=== PATIENT | male | born 1955 | race Caucasian/White ===

== ENCOUNTER → 2017-05-24 | Outpatient (REF) | payer OTHER ==
[~2017-05-24] MED LIST: /CELE20CA; FOLIC1; MOTR200T4; REMICADE; VICO5TAB; [UNRECOGNIZED DRUG - CODE]
== END ==
LOC: M LAB REF 17:47
PROVIDERS: ATTEND Surgery
DX: L72.3 Sebaceous cyst (principal)

== ENCOUNTER → 2017-06-14 | Outpatient (CLI) | payer OTHER | LOC: M SMT 10:28 | PROVIDERS: ATTEND Nurse Practitioner Women's Health | DX: N40.0 Benign prostatic hyperplasia without lower urinary tract symptoms (principal) ==

== ENCOUNTER → 2018-02-20 | Outpatient (CLI) | payer OTHER ==
[2018-02-20 17:45] LABS: BASO # 0.1 10^3/uL (0.0-0.2); BASO % 0.9 % (0.0-1.0); EOS # 0.6 10^3/uL (0.0-0.50); EOS % 7.5 % (0.0-3.0); HEMATOCRIT 41.4 % (42.0-52.0); HEMOGLOBIN 14.6 g/dl (13.5-17.5); IMMATURE GRANULOCYTE % 0.4 % (0-3.0); LYMPH # 1.6 10^3/uL (1.5-4.5); LYMPH % 21.7 % (24.0-44.0); MEAN CORPUSCULAR HGB CONC 35.3 g/dl (32.0-36.5); MEAN CORPUSCULAR VOLUME 96.5 fl (80.0-96.0); MONO # 0.7 10^3/uL (0.0-0.8); MONO % 9.8 % (0.0-5.0); NEUTROPHILS # 4.4 10^3/uL (1.8-7.7); NEUTROPHILS % 59.7 % (36.0-66.0); PLATELET COUNT, AUTOMATED 222 10^3/uL (150-450); RED BLOOD COUNT 4.29 10^6/uL (4.30-6.10); RED CELL DISTRIBUTION WIDTH 12.7 % (11.5-14.5); WHITE BLOOD COUNT 7.4 10^3/uL (4.0-10.0)
[2018-02-20 18:11] LABS: ERYTHROCYTE SEDIMENTATION RATE 12 mm/hr (0-20)
[2018-02-20 18:31] LABS: ALBUMIN 4.1 GM/DL (3.2-5.2); ALBUMIN/GLOBULIN RATIO 1.24 (1.00-1.93); ALKALINE PHOSPHATASE 85 U/L (45-117); ALT/SGPT 44 U/L (12-78); ANION GAP 5 MEQ/L (8-16); AST/SGOT 21 U/L (7-37); BILIRUBIN,TOTAL 0.4 MG/DL (0.2-1.0); BLOOD UREA NITROGEN 16 MG/DL (7-18); CALCIUM LEVEL 9.1 MG/DL (8.8-10.2); CARBON DIOXIDE LEVEL 30 MEQ/L (21-32); CHLORIDE LEVEL 108 MEQ/L (98-107); CREATININE FOR GFR 1.24 MG/DL (0.70-1.30); GLOMERULAR FILTRATION RATE > 60.0 (>49); GLUCOSE, FASTING 104 MG/DL (70-100); POTASSIUM SERUM 4.4 MEQ/L (3.5-5.1); SODIUM LEVEL 143 MEQ/L (136-145); TOTAL PROTEIN 7.4 GM/DL (6.4-8.2)
[2018-02-23 00:09] LABS: CYCLIC CITRULLINATED PEPTIDE 127 units (0-19)
[2018-02-23 00:09] LABS: ANTINUCLEAR ANTIBODIES DIRECT Negative (Negative)
== END ==
LOC: M LAB 16:55
DX: M05.79 Rheumatoid arthritis with rheumatoid factor of multiple sites without organ or systems involvement (principal)
CPT/HCPCS: 80053

== ENCOUNTER → 2019-05-03 | Outpatient (CLI) | payer OTHER ==
[~2019-05-03] MED LIST changes: -/CELE20CA; +CELE1CAP4; +CELE1CAP9 PO; +D32000CA PO; +FLOM0.4C39 PO; +FOLI1TAB11 PO; +METH2.5T48 PO; +VESI10TA2 PO
[2019-05-03 13:48] LABS: BASO % 0.6 % (0.0-1.0); EOS # 0.3 10^3/uL (0.0-0.50); EOS % 4.4 % (0.0-3.0); HEMATOCRIT 39.1 % (42.0-52.0); HEMOGLOBIN 13.8 g/dl (13.5-17.5); LYMPH # 1.6 10^3/uL (1.5-4.5); LYMPH % 23.9 % (24.0-44.0); MEAN CORPUSCULAR HEMOGLOBIN 35.2 pg (27.0-33.0); MEAN CORPUSCULAR HGB CONC 35.3 g/dl (32.0-36.5); MEAN CORPUSCULAR VOLUME 99.7 fl (80.0-96.0); MONO # 0.7 10^3/uL (0.0-0.8); MONO % 10.6 % (0.0-5.0); NEUTROPHILS # 4.1 10^3/uL (1.8-7.7); NEUTROPHILS % 60.1 % (36.0-66.0); PLATELET COUNT, AUTOMATED 222 10^3/uL (150-450); RED BLOOD COUNT 3.92 10^6/uL (4.30-6.10); WHITE BLOOD COUNT 6.8 10^3/uL (4.0-10.0)
[2019-05-03 14:10] LABS: ERYTHROCYTE SEDIMENTATION RATE 14 mm/hr (0-20)
[2019-05-03 14:29] LABS: ALBUMIN 3.8 GM/DL (3.2-5.2); ALT/SGPT 35 U/L (12-78); BILIRUBIN,TOTAL 0.4 MG/DL (0.2-1.0); BLOOD UREA NITROGEN 14 MG/DL (7-18); CALCIUM LEVEL 9.2 MG/DL (8.8-10.2); CARBON DIOXIDE LEVEL 27 MEQ/L (21-32); CHLORIDE LEVEL 110 MEQ/L (98-107); CREATININE FOR GFR 1.38 MG/DL (0.70-1.30); GLOMERULAR FILTRATION RATE 55.2 (>49); GLUCOSE, FASTING 88 MG/DL (70-100); RHEUMATOID FACTOR QUANT < 10.0 IU/ML (<15.0); SODIUM LEVEL 142 MEQ/L (136-145); TOTAL PROTEIN 6.7 GM/DL (6.4-8.2)
[2019-05-08 00:07] LABS: CYCLIC CITRULLINATED PEPTIDE 65 units (0-19)
== END ==
LOC: M LAB 12:54
PROVIDERS: ATTEND Nurse Practitioner Family
DX: M05.79 Rheumatoid arthritis with rheumatoid factor of multiple sites without organ or systems involvement (principal); Z79.899 Other long term (current) drug therapy

== ENCOUNTER → 2019-05-08 | Outpatient (CLI) | payer OTHER ==
[2019-05-08 18:52] LABS: APPEARANCE, URINE CLEAR (CLEAR); BACTERIA, URINE AUTO NEGATIVE (NEGATIVE); BILIRUBIN, URINE AUTO NEGATIVE (NEGATIVE); BLOOD, URINE BLOOD 1+ (NEGATIVE); COLOR, URINE YELLOW (YELLOW); GLUCOSE, URINE (UA) AUTO NEGATIVE (NEGATIVE); KETONE, URINE AUTO NEGATIVE (NEGATIVE); LEUKOCYTE ESTERASE, URINE AUTO NEGATIVE (NEGATIVE); NITRITE, URINE AUTO NEGATIVE (NEGATIVE); PROTEIN, URINE AUTO NEGATIVE (NEGATIVE); RBC, URINE AUTO 1 /HPF (0-3); SPECIFIC GRAVITY URINE AUTO 1.013 (1.002-1.035); SQUAMOUS EPITHELIAL CELL UR AU 0 /HPF (0-6); UROBILINOGEN, URINE AUTO 0.2 mg/dL (0.0-2.0); WBC, URINE AUTO 0 /HPF (0-3)
== END ==
LOC: M LAB 16:04
PROVIDERS: ATTEND Nurse Practitioner Women's Health
DX: Z12.5 Encounter for screening for malignant neoplasm of prostate (principal); N32.81 Overactive bladder
CPT/HCPCS: 36415; 81001; 87086; G0103; G0463

== ENCOUNTER → 2019-05-08 | Outpatient (CLI) | payer OTHER | LOC: M LAB 16:11 | PROVIDERS: ATTEND Internal Medicine Rheumatology | DX: M05.79 Rheumatoid arthritis with rheumatoid factor of multiple sites without organ or systems involvement (principal) ==

== ENCOUNTER → 2019-05-13 | Outpatient (CLI) | payer OTHER ==
[2019-05-13 07:43] LABS: BASO % 0.6 % (0.0-1.0); EOS # 0.3 10^3/uL (0.0-0.50); EOS % 4.5 % (0.0-3.0); HEMATOCRIT 38.6 % (42.0-52.0); LYMPH # 1.2 10^3/uL (1.5-4.5); LYMPH % 18.6 % (24.0-44.0); MEAN CORPUSCULAR HGB CONC 36.3 g/dl (32.0-36.5); MEAN CORPUSCULAR VOLUME 99.2 fl (80.0-96.0); MONO # 0.7 10^3/uL (0.0-0.8); MONO % 11.3 % (0.0-5.0); NEUTROPHILS % 64.4 % (36.0-66.0); PLATELET COUNT, AUTOMATED 221 10^3/uL (150-450); RED BLOOD COUNT 3.89 10^6/uL (4.30-6.10); WHITE BLOOD COUNT 6.2 10^3/uL (4.0-10.0)
[2019-05-15 13:51] LABS: %CD19 Negative; %CD20 Negative
== END ==
LOC: M LAB 07:19
PROVIDERS: ATTEND Internal Medicine Rheumatology
DX: M05.79 Rheumatoid arthritis with rheumatoid factor of multiple sites without organ or systems involvement (principal)

== ENCOUNTER → 2019-05-31 | Outpatient (CLI) | payer OTHER ==
[2019-05-31 14:35] LABS: ALBUMIN 3.8 GM/DL (3.2-5.2); ALT/SGPT 34 U/L (12-78); BILIRUBIN,TOTAL 0.4 MG/DL (0.2-1.0); BLOOD UREA NITROGEN 14 MG/DL (7-18); CALCIUM LEVEL 8.8 MG/DL (8.8-10.2); CARBON DIOXIDE LEVEL 26 MEQ/L (21-32); CHLORIDE LEVEL 110 MEQ/L (98-107); CREATININE FOR GFR 1.17 MG/DL (0.70-1.30); GLOMERULAR FILTRATION RATE > 60.0 (>49); GLUCOSE, FASTING 84 MG/DL (70-100); POTASSIUM SERUM 4.3 MEQ/L (3.5-5.1); SODIUM LEVEL 142 MEQ/L (136-145); TOTAL PROTEIN 6.6 GM/DL (6.4-8.2)
== END ==
LOC: M LAB 13:20
PROVIDERS: ATTEND Internal Medicine Rheumatology
DX: Z79.899 Other long term (current) drug therapy (principal)

== ENCOUNTER 2019-08-09 05:33 | Day surgery (SDC) | payer OTHER ==
--- NOTE | 2019-07-30 04:29 | CR ---
DATE OF CONSULTATION: 07/22/2019 PREOPERATIVE CONSULTATION REPORT FOR: Dr. Cool for right foot arthrodesis 08/09/2019. Dear Dr. Cool, Thank you for asking me to see Mr. Avery Wallace in consultation. He is, as you know, a 63-year-old gentleman with a past medical history of hyperlipidemia, rheumatoid arthritis, who has had progressive left foot pain and disability over the last 6 months. Patient reports his rheumatoid arthritis has been stable on Rituxan, methotrexate, Celebrex, but all medicines are on hold, the methotrexate and Celebrex 2 weeks before surgery. The Rituxan, he gets every 6 months and is due for it, but it is on hold per his seam press operator, Dr. Ramirez, at [facility]. Patient reports that despite this, he is working daily at [employer]. He does report the foot pain slows him down but he is physically active, not at a desk job, denying any chest pain, palpitations, syncope, or presyncope. Patient has obstructive sleep apnea (CARROLL), uses continuous positive airway pressure (CPAP) regularly. Patient has non-Hodgkin's lymphoma felt to be caused by one of his rheumatology treatments, is stable, unchanged, and follows with Dr. Bazzi. Patient has prostate disease and is treated with tamsulosin and VESIcare with good results. Follows with urology. Patient otherwise denies any fevers or chills, chest pain or shortness of breath, nausea, vomiting, change in bowels. PAST MEDICAL HISTORY: 1. Hyperlipidemia. 2. Rheumatoid arthritis. 3. Non-Hodgkin's lymphoma secondary to Remicade, inoperable, so being monitored. 4. Benign microhematuria. Follows with urology. 5. Cholecystectomy 2008. 6. Chronic bronchitis. 7. Seasonal allergic rhinitis. 8. Vasectomy 09/17/2009. 9. BPH. Follows with urology. 10. CARROLL. On CPAP. 11. Vitamin D deficiency. MEDICATIONS: - Celebrex 200 mg daily - folic acid 1 mg daily - methotrexate 2.5 mg six tablets weekly - Rituxan infusion every 6 months - tamsulosin 0.4 mg daily - VESIcare 10 mg daily - vitamin D3, 2000 international units daily ALLERGIES: Patient has no known drug allergies. SOCIAL HISTORY: Works in maintenance shop at [employer], , three adult children. Never smoked. Rare alcohol. FAMILY HISTORY: Father from stroke at 62. He had multiple myeloma. Mother from stroke at 82. She had hypertension, coronary artery disease (CAD), osteoarthritis (OA). Brother has CAD. A second brother, hypertension. Sister, pulmonary hypertension, at 62. A second sister, chronic obstructive pulmonary disease (COPD). Grandparents had cardiac disease, kidney disease, and emphysema. PHYSICAL EXAMINATION: Overweight male in no acute distress with weight 240, body mass index (BMI) 34, oxygen saturation after exertion 96%, blood pressure 118/60 with a heart rate of 54. HEENT: Head is normocephalic. Neck is supple. Pupils equal, reactive to light. Extraocular movements are intact. Conjunctivae not injected. Sclerae anicteric. Tympanic membranes slightly dull. He does wear eyeglasses. He has no thyromegaly, jugular venous distention (JVD), or carotid bruits. RESPIRATORY: Clear to auscultation. Resonant to percussion. CARDIOVASCULAR: Regular rate, rhythm. No murmur, rub, or gallop. ABDOMEN: Soft, nontender. No hepatosplenomegaly. EXTREMITIES: He has good peripheral pulses. No significant swelling of his fingers. DERMATOLOGIC: No rashes, bruises. NEUROLOGIC: Alert and oriented. Cranial nerves II-XII are intact. LABORATORY DATA: EKG 07/21/2019: Sinus bradycardia, rate of 54, axis of -15. Normal WV, QRS, QTc interval. Normal R wave progression. No atrial or ventricular hypertrophy. No pathologic Q waves. EKG unchanged from previous EKG except for the bradycardia. Laboratory data 07/12/2019 shows a normal med profile and vitamin D. From 05/31/2019, he had a normal liver panel. From 05/13/2019, he had a normal CBC. IMPRESSION: Mr. Avery Wallace is a 63-year-old gentleman with cardiovascular risk factors positive only for age and hyperlipidemia and has no signs or symptoms indicative of cardiovascular ischemia. Patient is felt to be optimized and at low risk for cardiovascular complications, which can be further minimized by the following: PROBLEMS: 1. Rheumatoid arthritis. Methotrexate, Rituxan, and Celebrex already on hold 2 weeks before surgical intervention. Resume per seam press operator and orthopedic surgeon postoperatively. 2. Non-Hodgkin's lymphoma. No specific treatment. Being monitored by hematology/oncology. 3. BPH. I have approved him taking tamsulosin morning of surgery. He takes VESIcare later in the day. 4. Obstructive sleep apnea. I have encouraged him to bring CPAP with him to surgery. 5. Vitamin D deficiency. Hold vitamin D morning of surgery. 6. Hyperlipidemia. Continue dietary, exercise modification. He is on no specific pharmacologic therapy. Thank you very much for this consultation. Please call with questions or concerns.
--- NOTE | 2019-08-01 15:30 | HPE ---
DATE OF ANTICIPATED ADMISSION: 08/09/2019 CHIEF COMPLAINT: Left foot pain. HISTORY OF PRESENT ILLNESS: Avery Wallace is a 63-year-old male with rheumatoid arthritis who has had longstanding pain due to arthritis in the hindfoot. He has failed conservative measures and presents for elective double arthrodesis. PHYSICAL EXAMINATION: General: Well appearing, alert and oriented, in no acute distress. Pulmonary: Regular nonlabored breathing. Cardiovascular: Regular rate and rhythm. Musculoskeletal: Left foot there is tenderness along the talonavicular and subtalar joints. Very significant stiffness with minimal inversion, eversion. Intact dorsiflexion and plantar flexion. Normal sensation to light touch of the superficial peroneal, deep peroneal, tibial, and sural nerve distributions. Foot is warm and well perfused. HOME MEDICATIONS: - Celebrex - folic acid - methotrexate - oxycodone - Tamsulosin - VESIcare - vitamin D PAST MEDICAL HISTORY: 1. Rheumatoid arthritis 2. History of lymphoma. SOCIAL HISTORY: Patient does not smoke. He works at [employer]. He is and lives with his . IMAGING: Radiographs of the left foot and ankle showed osteoarthritis of the hindfoot. Relative neutral alignment of the foot. IMPRESSION: Left hindfoot arthritis. PLAN: Patient would like to proceed with double arthrodesis. Risks and benefits of surgery were discussed with the patient in detail and include but are not limited to infection, damage to nerves and blood vessels, continued pain and stiffness, need for additional procedures. Informed consent was obtained in the office. He will likely need to spend one night following surgery. LUCAS
[~2019-08-09] VITALS: Ht 180.3 cm; Wt 108.3 kg
[2019-08-09] VITALS (7 sets, daily range): BP systolic 124–153; BP diastolic 62–82
[~2019-08-09 05:33] MED LIST changes: +RITU10VLL IV
[2019-08-09] MEDS ORDERED: MIDAZOLAM INJ 2 MG/2 ML VIAL (J2250) IV SCH (06:00)
[2019-08-09] MEDS ORDERED: LR 1,000 ML IV ONE (06:00)
[2019-08-09] MEDS ORDERED: fentaNYL 100 MCG/2 ML INJECTION (J3010) IV SCH (06:00)
[2019-08-09] MEDS ORDERED: ceFAZolin SOD 2 GM in IV 1 EA IV ONE (06:00)
[2019-08-09] MEDS ORDERED: MIDAZOLAM INJ 2 MG/2 ML VIAL (J2250) As Ordered ONE (07:08)
[2019-08-09] MEDS ORDERED: fentaNYL 100 MCG/2 ML INJECTION (J3010) As Ordered ONE ×3 (07:08→09:11)
[2019-08-09] MEDS ORDERED: PROPOFOL 200 MG/20 ML VIAL As Ordered ONE (07:13)
[2019-08-09] MEDS ORDERED: ROCURONIUM BROMIDE 50 MG/5 ML VIAL As Ordered ONE ×2 (07:13→09:05)
[2019-08-09] MEDS ORDERED: LIDOCAINE 2% INJ 100 MG/5 ML SDV (FOR ANES.) As Ordered ONE (07:13)
[2019-08-09] MEDS ORDERED: dexameTHASONE 4 MG/ML 1ML VIAL (J1100) As Ordered ONE (07:14)
[2019-08-09] MEDS ORDERED: LACRILUBE (AKWA TEARS) OPHTH OINT 3.5 GM As Ordered ONE (07:14)
[2019-08-09] MEDS ORDERED: ONDANSETRON 4MG/2ML VIAL (J2405) As Ordered ONE (07:14)
[2019-08-09] MEDS ORDERED: KETAMINE HCL 200 MG/20 ML VIAL As Ordered ONE ×2 (08:04→14:58)
[2019-08-09] MEDS ORDERED: SUGAMMADEX SODIUM 500 MG/5 ML VIAL (BRIDION) As Ordered ONE (09:05)
[2019-08-09] MEDS ORDERED: ACETAMINOPHEN 1000MG 100ML IV BTL (OFIRMEV) (J0131 PER 10MG) As Ordered ONE (09:09)
[2019-08-09] MEDS ORDERED: LABETALOL HCL 100 MG/20 ML VIAL As Ordered ONE (09:21)
[2019-08-09] MEDS ORDERED: LIDOCAINE 2% MDV 20 ML VIAL ONE (09:53)
[2019-08-09] MEDS ORDERED: ROPIvacaine 0.5% 30 ML INJECTION (J2795 PER 1MG) ONE (09:53)
[2019-08-09] MEDS ORDERED: DESFLURANE 240 ML INHALANT As Ordered ONE (10:01)
[2019-08-09] MEDS ORDERED: BUPIVACAINE HCL 0.5% 30 ML VIAL As Ordered ONE (11:29)
[2019-08-09] MEDS ORDERED: fentaNYL 100 MCG/2 ML INJECTION (J3010) IV PRN (12:45)
[2019-08-09] MEDS ORDERED: LR 1,000 ML IV SCH (12:45)
[2019-08-09] MEDS ORDERED: PERCOCET 5MG/325MG TAB PO PRN (12:45)
[2019-08-09] MEDS ORDERED: ONDANSETRON 4MG/2ML VIAL (J2405) IV PRN (12:45)
[2019-08-09] MEDS ORDERED: HYDROMORPHONE HCL 0.5 MG/ 0.5 ML SYRINGE (J1170 PER 1) IV PRN (12:45)
[2019-08-09] MEDS ORDERED: METOCLOPRAMIDE INJ 10MG/2ML VIAL (J2765) As Ordered ONE (12:48)
[2019-08-09] MEDS ORDERED: METOCLOPRAMIDE INJ 10MG/2ML VIAL (J2765) IV ONE (13:00)
--- NOTE | 2019-08-09 13:20 | REP ---
C-ARM VIEWS LEFT ANKLE AND FOOT: Multiple C-arm views of the left ankle and foot performed during placement of multiple metallic screws. The osseous structures are well aligned. There are two screws bridging the talus and calcaneus. There are four screws fusing the talus and navicular with dorsal cerclage wiring. Osseous structures are well aligned. 2 minutes 50 seconds fluoroscopy time utilized. Electronically Signed by Rancho Bentley MD 08/10/2019 11:10 A
[2019-08-09] MEDS ORDERED: FLEET ENEMA PR PRN (13:46)
[2019-08-09] MEDS ORDERED: MORPHINE 4 MG/ML 1ML VIAL/SYRINGE (J2270) IV PRN (13:46)
[2019-08-09] MEDS: LR 1,000 ML IV SCH (13:46)
[2019-08-09] MEDS ORDERED: ACETAMINOPHEN 500 MG TAB PO SCH (14:00)
[2019-08-09] MEDS ORDERED: oxyCODONE 5MG TAB PO PRN ×2 (14:15)
[2019-08-09] MEDS: ceFAZolin SOD 2 GM in IV 1 EA IV SCH (15:51)
[2019-08-09] MEDS: ACETAMINOPHEN 500 MG TAB PO SCH (21:04)
[2019-08-10] MEDS: ceFAZolin SOD 2 GM in IV 1 EA IV SCH (00:04)
[2019-08-10] MEDS: LR 1,000 ML IV SCH (01:53)
[2019-08-10 02:00] VITALS: BP 109/60
[2019-08-10] MEDS: ACETAMINOPHEN 500 MG TAB PO SCH (05:48)
[2019-08-10 06:00] VITALS: BP 113/60
[2019-08-10] MEDS ORDERED: OXYC-517 PO (06:15)
[2019-08-10] MEDS ORDERED: XARE10TA PO ×2 (06:15→07:11)
[2019-08-10] MEDS ORDERED: RIVAROXABAN 10 MG TAB (XARELTO) PO SCH (18:00)
--- NOTE | 2019-08-13 10:31 | DSES ---
DATE OF ADMISSION: 08/09/2019 DATE OF DISCHARGE: 08/10/2019 ADMISSION DIAGNOSIS: Left hind foot arthritis. OTHER DIAGNOSES: Rheumatoid arthritis, history of lymphoma. DISCHARGE DIAGNOSIS: Left hind foot arthritis status post double arthrodesis with a left proximal tibial bone graft. OPERATION PERFORMED: Double arthrodesis with the use of a left proximal tibial bone graft. HISTORY: This is a 63-year-old male patient with progressively worsening left ankle pain and stiffness. He failed to improve with conservative management. He was admitted for elective left ankle double arthrodesis with use left proximal tibial bone graft grafting. HOSPITAL COURSE: The patient was admitted on day of surgery underwent the above listed procedure. It was well tolerated by the patient and without complications. On day of discharge he was doing well, non-weightbearing on his left lower extremity and follow up in our office in 7-10 days for surgical followup. He will use oral pain medications for pain control. He will resume his preoperative medications and diet. He will use Xarelto 10 mg per their protocol for DVT prophylaxis. He was given instructions to include but not limited to wound monitoring and activity limitations. Please refer the medical record further details. LUCAS
--- NOTE | 2019-08-19 08:05 | RO ---
DATE OF PROCEDURE: 08/09/2019 PREOPERATIVE DIAGNOSIS: Left hindfoot arthritis. POSTOPERATIVE DIAGNOSIS: Left hindfoot arthritis. PROCEDURE: Left double arthrodesis and proximal tibial bone graft. SURGEON: Kari Cool MD FINANCE ADMINISTRATOR: JEAN Madrid ANESTHESIA: General endotracheal, popliteal block. ESTIMATED BLOOD LOSS: 200 mL. COMPLICATIONS: None. CONDITION: Stable to recovery. INDICATIONS: Avery Wallace is a 63-year-old male with advanced arthritis of his hindfoot due to rheumatoid arthritis. He has failed conservative measures. Patient elects for double arthrodesis and proximal tibial bone graft. Risks and benefits of surgery were discussed with the patient in detail and include, but are not limited to, infection, damage to nerves and blood vessels, continued pain and stiffness, need for additional procedures. Informed consent was obtained in the office. DESCRIPTION OF PROCEDURE: The patient was met in the preoperative holding area where his left lower extremity was marked as the correct operative side. He underwent a popliteal nerve block by anesthesia. He was then taken to the operating room where he underwent general anesthesia. A Brock catheter was placed and removed at the end of the case by nursing. A well-padded tourniquet was applied to the left upper thigh. Chlorhexidine scrub was provided to the left lower leg as well. He was then prepped and draped in a normal sterile fashion. Antibiotics were given within 60 minutes prior to incision. An official time-out was held where the correct patient, operative side, and operative procedure were verified. At this point, incision was marked out over standard sinus tarsi approach laterally and medially over the talonavicular joint. An Esmarch was used to exsanguinate the leg, and tourniquet was inflated to 250 mmHg. Incision was made laterally, and sinus tarsi approach was utilized to gain access to the subtalar joint. There was moderate to severe arthritis throughout the joint and a significant amount of sclerotic bone. Cartilage was thoroughly debrided using a series of curved [place] osteotomes and curettes. I was able to gain good access to the joint using lamina spreaders. Following this, copious irrigation was performed. Multiple holes were used to perforate the sclerotic bone into the subchondral bone using a 2.0 drill. Furthermore, a small [place] osteotome was used to further fish scale the joint. After the subtalar joint was adequately prepared, attention was then turned to the talonavicular joint. Incision was made medially over the talonavicular joint just anterior to the posterior tibial tendon. Joint was accessed and found to have severe arthritis. Any remaining cartilage was debrided using osteotomes and curettes. Joint was further perforated using a 2.0 drill and Matias osteotome to further penetrate the joint. I gained access the joint using a distractor. Next, attention was turned to the proximal tibia. A small incision was made in the region of the Gerdy's tubercle. Anterior compartment was elevated. A 1 cm x 1 cm cortical window was made using a small osteotome. Following this, approximately 5 mL of cancellous bone graft were removed from the proximal tibia. This was done under radiographic guidance to ensure it did not penetrate into the joint. Cortical window was replaced. Copious irrigation was performed. The anterior compartment was closed using #0 Vicryl. Once the bone graft was obtained, it was mixed with Augment from [employer]. The combination of Augment and proximal tibia bone graft was placed into both the subtalar and talonavicular joints. The foot was pinned in place. The patient did have adequate alignment of his foot preoperatively and, thus, no reduction was required to gain adequate foot alignment. However, after the subtalar joint and talonavicular joints were pinned, I then proceeded with hardware across the subtalar joint. I used two 6.5 mm partially threaded screws and was able to gain good compression with these. Adequate compression of the joint and satisfactory hardware placement was confirmed on AP ankle, Broden view, lateral ankle view, and Lezama heel view. Attention was then turned to the talonavicular joint. Two 4.0 mm screws were placed in lag-type fashion starting medially across the joints. I then also made a small incision lateral to the tibialis anterior tendon. Care was taken with careful dissection to avoid the neurovascular bundle. I then utilized a Claw plate by [employer] over the dorsolateral aspect of the talonavicular joint to gain further compression. At this point, final x-rays were performed using fluoroscopy. Joint compression in both the talonavicular joint and subtalar joint was found to be satisfactory as was hardware placement across both of these joints. Any remaining bone graft was placed into the region of the joints. Soft tissues were closed using #3-0 Vicryl, and skin was closed using #3-0 nylon. Before closure and bone graft placement, I had adequately irrigated both incision sites. Proximal tibia bone graft site was also closed. Sterile dressing was applied. Then a well-padded splint was applied as well. The patient was extubated and transferred to the recovery room in stable condition. PLAN: Patient will be nonweightbearing in the left lower extremity for 2 months. I will see him in a week for wound check and cast placement. He was admitted to the hospital overnight for pain control and IV antibiotics.
== END 2019-08-10 12:45 | disposition home or self-care (01) ==
LOC: M OR 05:33 → M SDC 05:33 → M OR 05:33 → UNDOADMIN 05:33 → EDSTATUS 07:30 → M OR 13:27 → M MS5PR 13:27 → M SDC 08-10 12:45 → UNDODISIN 08-10 12:45
PROVIDERS: ATTEND Orthopaedic Surgery
DX: M06.072 Rheumatoid arthritis without rheumatoid factor, left ankle and foot (principal); D17.1 Benign lipomatous neoplasm of skin and subcutaneous tissue of trunk; G47.33 Obstructive sleep apnea (adult) (pediatric); E78.5 Hyperlipidemia, unspecified; C85.90 Non-Hodgkin lymphoma, unspecified, unspecified site; N40.0 Benign prostatic hyperplasia without lower urinary tract symptoms; R06.83 Snoring; J41.0 Simple chronic bronchitis; E55.9 Vitamin D deficiency, unspecified; Z79.899 Other long term (current) drug therapy; Z92.21 Personal history of antineoplastic chemotherapy
CPT/HCPCS: 27870; 28725; 76000; 97161; C1713; J0131; J0690; J1100; J2250; J2405; J2765; J2795; J3010

== ENCOUNTER → 2020-05-25 | Outpatient (CLI) | payer OTHER ==
[~2020-05-25] MED LIST changes: +ASPI81TA86 PO; +D3 22000 PO; +OXYC-517 PO; +XARE10TA PO
== END ==
LOC: M LAB 07:19
PROVIDERS: ATTEND Nurse Practitioner Women's Health
DX: Z12.5 Encounter for screening for malignant neoplasm of prostate (principal)
CPT/HCPCS: 36415; G0103

== ENCOUNTER → 2020-09-17 | Outpatient (CLI) | payer OTHER ==
[~2020-09-17] MED LIST changes: +ECOT81TA5 PO; +VITA1CAP25 PO
[2020-09-17 18:17] LABS: ALBUMIN 3.7 GM/DL (3.2-5.2); BILIRUBIN,TOTAL 0.4 MG/DL (0.2-1.0); CALCIUM LEVEL 8.8 MG/DL (8.8-10.2); CREATININE FOR GFR 1.48 MG/DL (0.70-1.30); GLOMERULAR FILTRATION RATE 50.6 (>49); POTASSIUM SERUM 4.4 MEQ/L (3.5-5.1); TOTAL PROTEIN 6.7 GM/DL (6.4-8.2)
[2020-09-20 16:16] LABS: ANTINUCLEAR ANTIBODIES DIRECT Negative (Negative); CYCLIC CITRULLINATED PEPTIDE 115 units (0-19)
== END ==
LOC: M LAB 15:34
PROVIDERS: ATTEND Internal Medicine Rheumatology
DX: Z51.81 Encounter for therapeutic drug level monitoring (principal); Z79.899 Other long term (current) drug therapy

== ENCOUNTER 2020-12-03 08:15 | Outpatient (CLI) | payer OTHER ==
[~2020-12-03] VITALS: Ht 182.9 cm; Wt 111.0 kg
[2020-12-03] VITALS (8 sets, daily range): BP systolic 124–162; BP diastolic 60–80
[~2020-12-03 08:15] MED LIST changes: +ALBUTEROL SULFATE (2.5MG/0.5ML) NEB INH PRN; +EPINEPHrine (1MG/ML) IV IM PRN; +FAMOTIDINE IV BAG 20 MG IV PRN; +NS 1,000 ML IV PRN; +diphenhydrAMINE (50MG/ML) IV IV PRN; +methylPREDNISolone (125 MG/2 ML) IV IV PRN
[2020-12-03] MEDS ORDERED: methylPREDNISolone 125MG 2ML VIAL IV ONE (08:30)
[2020-12-03] MEDS ORDERED: riTUXimab 1,000 MG in NS 900 ML IV ONE (08:30)
[2020-12-03 09:19] LABS: BASO % 0.6 % (0.0-1.0); EOS # 0.2 10^3/uL (0.0-0.5); EOS % 3.3 % (0.0-3.0); HEMATOCRIT 40.4 % (42.0-52.0); HEMOGLOBIN 13.9 g/dl (13.5-17.5); LYMPH # 1.6 10^3/uL (1.5-5.0); LYMPH % 21.5 % (24.0-44.0); MEAN CORPUSCULAR HEMOGLOBIN 33.4 pg (27.0-33.0); MEAN CORPUSCULAR HGB CONC 34.4 g/dl (32.0-36.5); MEAN CORPUSCULAR VOLUME 97.1 fl (80.0-96.0); MONO # 0.5 10^3/uL (0.0-0.8); MONO % 6.6 % (2.0-8.0); NEUTROPHILS # 4.9 10^3/uL (1.5-8.5); NEUTROPHILS % 67.4 % (36.0-66.0); PLATELET COUNT, AUTOMATED 210 10^3/uL (150-450); RED BLOOD COUNT 4.16 10^6/uL (4.30-6.10); WHITE BLOOD COUNT 7.3 10^3/uL (4.0-10.0)
[2020-12-03 09:46] LABS: ALBUMIN 3.6 GM/DL (3.2-5.2); BILIRUBIN,TOTAL 0.3 MG/DL (0.2-1.0); CALCIUM LEVEL 8.8 MG/DL (8.8-10.2); CREATININE FOR GFR 1.4 MG/DL (0.70-1.30); POTASSIUM SERUM 4.3 MEQ/L (3.5-5.1); TOTAL PROTEIN 6.7 GM/DL (6.4-8.2)
== END 2020-12-03 14:05 | disposition home or self-care (01) ==
LOC: M INFU 08:15
PROVIDERS: ATTEND Internal Medicine Hematology & Oncology
DX: C85.90 Non-Hodgkin lymphoma, unspecified, unspecified site (principal)
CPT/HCPCS: 36415; 80053; 85025; 96375; 96413; 96415; J2930; J9312

== ENCOUNTER 2020-12-18 07:45 | Outpatient (CLI) | payer OTHER ==
[~2020-12-18] VITALS: Ht 180.3 cm; Wt 110.0 kg
[~2020-12-18 07:45] MED LIST changes: -ALBUTEROL SULFATE (2.5MG/0.5ML) NEB INH PRN; +ALBUTEROL SULFATE 2.5 MG/0.5 ML INH NEB SOLN INH PRN; -EPINEPHrine (1MG/ML) IV IM PRN; +EPINEPHrine INJ 1 MG/ML 1ML AMP IM PRN; -FAMOTIDINE IV BAG 20 MG IV PRN; -NS 1,000 ML IV PRN; -diphenhydrAMINE (50MG/ML) IV IV PRN; +diphenhydrAMINE 50MG/ML VIAL (J1200) IV PRN; -methylPREDNISolone (125 MG/2 ML) IV IV PRN; +methylPREDNISolone 125MG 2ML VIAL IV PRN
[2020-12-18 07:50] VITALS: BP 131/62
[2020-12-18] MEDS ORDERED: NS 1,000 ML IV SCH (08:00)
[2020-12-18] MEDS ORDERED: riTUXimab 1,000 MG in NS 900 ML IV ONE (08:00)
[2020-12-18] MEDS ORDERED: FAMOTIDINE INJ 20MG/2ML VIAL (S0028 PER 1) IV PRN (08:00)
[2020-12-18] MEDS ORDERED: methylPREDNISolone 125MG 2ML VIAL IV ONE (08:00)
[2020-12-18 08:15] VITALS: BP 131/62
[2020-12-18 08:59] VITALS: BP 123/57
[2020-12-18 09:30] VITALS: BP 121/67
[2020-12-18 10:30] VITALS: BP 141/67
[2020-12-18 13:05] VITALS: BP 144/70
== END 2020-12-18 13:05 | disposition home or self-care (01) ==
LOC: M INFU 07:45
PROVIDERS: ATTEND Internal Medicine Hematology & Oncology
DX: C85.90 Non-Hodgkin lymphoma, unspecified, unspecified site (principal)
CPT/HCPCS: 96375; 96413; 96415; J2930; J9312

== ENCOUNTER → 2021-09-10 | Outpatient (CLI) | payer OTHER ==
[~2021-09-10] MED LIST changes: -ALBUTEROL SULFATE 2.5 MG/0.5 ML INH NEB SOLN INH PRN; -EPINEPHrine INJ 1 MG/ML 1ML AMP IM PRN; -diphenhydrAMINE 50MG/ML VIAL (J1200) IV PRN; -methylPREDNISolone 125MG 2ML VIAL IV PRN
[2021-09-10 09:59] LABS: BASO # 0.1 10^3/uL (0.0-0.2); BASO % 1.1 % (0.0-1.0); EOS # 0.5 10^3/uL (0.0-0.5); EOS % 5.6 % (0.0-3.0); HEMATOCRIT 42.7 % (42.0-52.0); HEMOGLOBIN 14.3 g/dl (13.5-17.5); LYMPH # 1.6 10^3/uL (1.5-5.0); LYMPH % 18.6 % (24.0-44.0); MEAN CORPUSCULAR HEMOGLOBIN 33.3 pg (27.0-33.0); MEAN CORPUSCULAR HGB CONC 33.5 g/dl (32.0-36.5); MEAN CORPUSCULAR VOLUME 99.3 fl (80.0-96.0); MONO # 0.8 10^3/uL (0.0-0.8); MONO % 9.8 % (2.0-8.0); NEUTROPHILS # 5.4 10^3/uL (1.5-8.5); NEUTROPHILS % 64.4 % (36.0-66.0); PLATELET COUNT, AUTOMATED 291 10^3/uL (150-450); WHITE BLOOD COUNT 8.4 10^3/uL (4.0-10.0)
[2021-09-10 10:31] LABS: ERYTHROCYTE SEDIMENTATION RATE 31 mm/hr (0-20)
[2021-09-10 10:36] LABS: ALBUMIN 3.6 GM/DL (3.2-5.2); BILIRUBIN,TOTAL 0.5 MG/DL (0.2-1.0); CALCIUM LEVEL 9.1 MG/DL (8.8-10.2); CREATININE FOR GFR 1.33 MG/DL (0.70-1.30); GLOMERULAR FILTRATION RATE 57.3 (>49); PHOSPHORUS LEVEL 2.8 MG/DL (2.5-4.9); POTASSIUM SERUM 4.4 MEQ/L (3.5-5.1); TOTAL PROTEIN 7.1 GM/DL (6.4-8.2)
[2021-09-11 19:08] LABS: ANTINUCLEAR ANTIBODIES DIRECT Negative (Negative)
== END ==
LOC: M LAB 08:36
PROVIDERS: ATTEND Internal Medicine Rheumatology
DX: M05.79 Rheumatoid arthritis with rheumatoid factor of multiple sites without organ or systems involvement (principal)

== ENCOUNTER → 2022-03-31 | Outpatient (REF) | payer OTHER ==
[2022-03-31 15:47] LABS: BASO # 0.1 10^3/uL (0.0-0.2); BASO % 0.8 % (0.0-1.0); EOS # 0.3 10^3/uL (0.0-0.5); EOS % 3.8 % (0.0-3.0); HEMATOCRIT 42.3 % (42.0-52.0); HEMOGLOBIN 14.8 g/dl (13.5-17.5); LYMPH # 2.4 10^3/uL (1.5-5.0); LYMPH % 30.7 % (24.0-44.0); MEAN CORPUSCULAR HEMOGLOBIN 33.5 pg (27.0-33.0); MEAN CORPUSCULAR VOLUME 95.7 fl (80.0-96.0); MONO # 0.7 10^3/uL (0.0-0.8); MONO % 9.4 % (2.0-8.0); NEUTROPHILS # 4.2 10^3/uL (1.5-8.5); NEUTROPHILS % 54.6 % (36.0-66.0); PLATELET COUNT, AUTOMATED 257 10^3/uL (150-450); RED BLOOD COUNT 4.42 10^6/uL (4.30-6.10); WHITE BLOOD COUNT 7.7 10^3/uL (4.0-10.0)
[2022-03-31 16:21] LABS: ALBUMIN 3.5 GM/DL (3.2-5.2); BILIRUBIN,TOTAL 0.4 MG/DL (0.2-1.0); CALCIUM LEVEL 9.3 MG/DL (8.8-10.2); CREATININE FOR GFR 1.47 MG/DL (0.70-1.30); GLOMERULAR FILTRATION RATE 50.9 (>49); POTASSIUM SERUM 4.4 MEQ/L (3.5-5.1); TOTAL PROTEIN 7.4 GM/DL (6.4-8.2)
[2022-03-31 20:29] LABS: ERYTHROCYTE SEDIMENTATION RATE 14 mm/hr (0-20)
== END ==
LOC: M LAB REF 15:20
PROVIDERS: ATTEND Internal Medicine Rheumatology
DX: M05.79 Rheumatoid arthritis with rheumatoid factor of multiple sites without organ or systems involvement (principal)

== ENCOUNTER → 2022-12-29 | Outpatient (REF) | payer OTHER ==
[2022-12-29 10:07] LABS: BASO # 0.1 10^3/uL (0.0-0.2); BASO % 0.7 % (0.0-1.0); EOS # 0.2 10^3/uL (0.0-0.5); HEMATOCRIT 46.8 % (42.0-52.0); HEMOGLOBIN 15.9 g/dl (13.5-17.5); LYMPH # 2.3 10^3/uL (1.5-5.0); MEAN CORPUSCULAR HEMOGLOBIN 32.4 pg (27.0-33.0); MEAN CORPUSCULAR VOLUME 95.5 fl (80.0-96.0); MONO # 0.7 10^3/uL (0.0-0.8); NEUTROPHILS # 4.8 10^3/uL (1.5-8.5); NEUTROPHILS % 58.8 % (36.0-66.0); PLATELET COUNT, AUTOMATED 245 10^3/uL (150-450); WHITE BLOOD COUNT 8.1 10^3/uL (4.0-10.0)
[2022-12-29 10:21] LABS: ERYTHROCYTE SEDIMENTATION RATE 26 mm/hr (0-20)
[2022-12-29 10:39] LABS: ALBUMIN 4.1 G/DL (3.2-5.2); BILIRUBIN,TOTAL 0.4 MG/DL (0.3-1.2); CALCIUM LEVEL 9.3 MG/DL (8.3-10.6); CREATININE FOR GFR 1.27 MG/DL (0.70-1.30); POTASSIUM SERUM 4.3 MMOL/L (3.5-5.1); TOTAL PROTEIN 7.1 G/DL (5.7-8.2)
== END ==
LOC: M ONCM 09:43 → M LAB REF 09:43
PROVIDERS: ATTEND Internal Medicine Rheumatology
DX: M05.79 Rheumatoid arthritis with rheumatoid factor of multiple sites without organ or systems involvement (principal); Z79.899 Other long term (current) drug therapy

== ENCOUNTER → 2023-02-27 | Outpatient (REF) | payer OTHER | LOC: M SFHCDERM 14:06 | PROVIDERS: ATTEND Physician Assistant | DX: R21 Rash and other nonspecific skin eruption (principal) | CPT/HCPCS: 11104; 88305; G0463 ==

== ENCOUNTER → 2024-09-26 | Outpatient (CLI) | payer OTHER ==
[~2024-09-26] MED LIST changes: +BETA0.0543; +CELE0.09 PO; -CELE1CAP9 PO; +DUPI300P SQ
== END ==
LOC: M WUC 09:26
PROVIDERS: ATTEND Physician Assistant Medical
DX: M25.552 Pain in left hip (principal); M25.562 Pain in left knee; M16.12 Unilateral primary osteoarthritis, left hip; M79.89 Other specified soft tissue disorders

== ENCOUNTER → 2025-05-08 | Outpatient (REF) | payer OTHER ==
[~2025-05-08] MED LIST changes: +DUPI300P; -FLOM0.4C39 PO; +IBUP200T46 PO; +MELO15TA28 PO; +NAPR220C14 PO; +TAMS-18 PO
== END ==
LOC: M LAB REF 10:10
PROVIDERS: ATTEND Urology
DX: Z01.818 Encounter for other preprocedural examination (principal); N40.1 Benign prostatic hyperplasia with lower urinary tract symptoms; N39.0 Urinary tract infection, site not specified

== ENCOUNTER → 2025-05-16 | Day surgery (SDC) | payer OTHER, MEDICARE ==
[~2025-05-16] VITALS: Ht 180.3 cm; Wt 104.0 kg
[~2025-05-16] MED LIST changes: +ACETAMINOPHEN 1000MG/100ML IV BAG As Ordered ONE; +CIPR-249 PO; +FUROSEMIDE 100 MG/10 ML VIAL As Ordered ONE; +HYDROMORPHONE HCL 0.5 MG/0.5 ML SYRINGE IV PRN; +LIDOCAINE 2% 100 MG/5 ML SDV (FOR ANES.) As Ordered ONE; +LR 1,000 ML IV SCH; +ONDANSETRON 4MG 2ML VIAL As Ordered ONE; +ONDANSETRON 4MG 2ML VIAL IV PRN; +ROCURONIUM BROMIDE 50MG/5ML VIAL As Ordered ONE; +SUGAMMADEX SODIUM 500 MG/5 ML VIAL As Ordered ONE
[2025-05-16] MEDS: ceFAZolin SOD 2 GM IV ONCE IV ONE (14:18)
[2025-05-16 17:12] VITALS: BP 148/72; TEMP 97.7; O2SAT 97
== END | disposition home or self-care (01) ==
LOC: M SDC 12:56
PROVIDERS: ATTEND Urology
DX: N40.1 Benign prostatic hyperplasia with lower urinary tract symptoms (principal); G47.33 Obstructive sleep apnea (adult) (pediatric); Z79.899 Other long term (current) drug therapy; Z85.72 Personal history of non-Hodgkin lymphomas; Z92.21 Personal history of antineoplastic chemotherapy
CPT/HCPCS: 52281; 52601; J0131; J0690; J1938; J2405; J3010

== ENCOUNTER → 2025-05-27 | Outpatient (REF) | payer OTHER ==
[~2025-05-27] MED LIST changes: -ACETAMINOPHEN 1000MG/100ML IV BAG As Ordered ONE; -FUROSEMIDE 100 MG/10 ML VIAL As Ordered ONE; -HYDROMORPHONE HCL 0.5 MG/0.5 ML SYRINGE IV PRN; -LIDOCAINE 2% 100 MG/5 ML SDV (FOR ANES.) As Ordered ONE; -LR 1,000 ML IV SCH; -ONDANSETRON 4MG 2ML VIAL As Ordered ONE; -ONDANSETRON 4MG 2ML VIAL IV PRN; -ROCURONIUM BROMIDE 50MG/5ML VIAL As Ordered ONE; -SUGAMMADEX SODIUM 500 MG/5 ML VIAL As Ordered ONE
[2025-05-27 17:40] LABS: APPEARANCE, URINE HAZY (CLEAR); BACTERIA, URINE AUTO 1+ (NEGATIVE); BILIRUBIN, URINE AUTO NEGATIVE (NEGATIVE); BLOOD, URINE BLOOD 3+ (NEGATIVE); GLUCOSE, URINE (UA) AUTO NEGATIVE (NEGATIVE); KETONE, URINE AUTO NEGATIVE (NEGATIVE); LEUKOCYTE ESTERASE, URINE AUTO TRACE (NEGATIVE); MUCUS, URINE SMALL (NEGATIVE); NITRITE, URINE AUTO NEGATIVE (NEGATIVE); PROTEIN, URINE AUTO NEGATIVE (NEGATIVE); RBC, URINE AUTO 34 /HPF (0-3); SPECIFIC GRAVITY URINE AUTO 1.008 (1.002-1.035); SQUAMOUS EPITHELIAL CELL UR AU 0 /HPF (0-6); UROBILINOGEN, URINE AUTO 0.2 mg/dL (0.0-2.0); WBC, URINE AUTO 11 /HPF (0-3)
== END ==
LOC: M SMT 17:01
PROVIDERS: ATTEND Nurse Practitioner Family
DX: R39.15 Urgency of urination (principal)

== ENCOUNTER → 2025-07-17 | Outpatient (CLI) | payer OTHER, MEDICARE ==
[2025-07-17 14:26] LABS: BASO # 0.1 10^3/uL (0.0-0.2); BASO % 0.7 % (0.0-1.0); EOS # 0.3 10^3/uL (0.0-0.5); EOS % 3.7 % (0.0-3.0); LYMPH # 2.3 10^3/uL (1.5-5.0); LYMPH % 25.8 % (24.0-44.0); MONO # 0.9 10^3/uL (0.0-0.8); MONO % 9.6 % (2.0-8.0); NEUTROPHILS # 5.4 10^3/uL (1.5-8.5); NEUTROPHILS % 59.6 % (36.0-66.0); PLATELET COUNT, AUTOMATED 274 10^3/uL (150-450)
[2025-07-17 14:27] LABS: INR 0.92
[2025-07-17 14:44] LABS: ALT/SGPT 23.0 U/L (7.0-40); AST/SGOT 17.0 U/L (<34); CALCIUM LEVEL 8.9 MG/DL (8.3-10.6); CARBON DIOXIDE LEVEL 25.0 MMOL/L (20-31); CHLORIDE LEVEL 107.0 MMOL/L (98-107); CREATININE FOR GFR 1.1 MG/DL (0.70-1.30); GLOMERULAR FILTRATION RATE 72.2 (>42); IRON (FE) 77.0 UG/DL (65-175); POTASSIUM SERUM 4.1 MMOL/L (3.5-5.1); SODIUM LEVEL 142.0 MMOL/L (136-145)
[2025-07-17 14:45] LABS: PERCENT SATURATION 31.6 % (19.7-50.0)
== END ==
LOC: M LAB 13:28
PROVIDERS: ATTEND Orthopaedic Surgery Adult Reconstructive Orthopaedic Surgery
DX: Z01.818 Encounter for other preprocedural examination (principal); M25.552 Pain in left hip; M16.12 Unilateral primary osteoarthritis, left hip

== ENCOUNTER → 2025-07-17 | Outpatient (CLI) | payer OTHER, MEDICARE | LOC: M LAB 13:25 | PROVIDERS: ATTEND Urology | DX: Z12.5 Encounter for screening for malignant neoplasm of prostate (principal) ==

== ENCOUNTER → 2025-10-08 | Outpatient (REF) | payer OTHER, MEDICARE ==
[2025-10-08 12:49] LABS: APPEARANCE, URINE CLEAR (CLEAR); BACTERIA, URINE AUTO NEGATIVE (NEGATIVE); BILIRUBIN, URINE AUTO NEGATIVE (NEGATIVE); BLOOD, URINE BLOOD 1+ (NEGATIVE); GLUCOSE, URINE (UA) AUTO NEGATIVE (NEGATIVE); KETONE, URINE AUTO NEGATIVE (NEGATIVE); LEUKOCYTE ESTERASE, URINE AUTO NEGATIVE (NEGATIVE); MUCUS, URINE SMALL (NEGATIVE); NITRITE, URINE AUTO NEGATIVE (NEGATIVE); PROTEIN, URINE AUTO NEGATIVE (NEGATIVE); RBC, URINE AUTO 1 /HPF (0-3); SPECIFIC GRAVITY URINE AUTO 1.020 (1.002-1.035); SQUAMOUS EPITHELIAL CELL UR AU 0 /HPF (0-6); UROBILINOGEN, URINE AUTO 0.2 mg/dL (0.0-2.0); WBC, URINE AUTO 4 /HPF (0-3)
== END ==
LOC: M SMT 12:34
PROVIDERS: ATTEND Urology
DX: R39.9 Unspecified symptoms and signs involving the genitourinary system (principal)